=== PATIENT | female | born 1980 | race American Indian/Alaskan Native ===

== ENCOUNTER 2017-02-21 07:31 | Outpatient (CLI) | payer MEDICAID ==
--- NOTE | 2017-02-21 14:23 | Fluoroscopy Report ---
Hysterosalpingogram. History: Infertility workup in a patient who has had previous right ectopic . Procedure and findings: After prepping the external cervical os with sterile solution, a small caliber catheter was introduced into the cervical os and advanced into the endometrial cavity. Injection of Omnipaque 300 was performed under fluoroscopic observation. There is a prominent persistent filling defect in the left lateral aspect of the endometrial cavity probably representing a submucosal fibroid. There is moderate hydrosalpinx of the left proximal fallopian tube. There is patency on the left with reflux into the peritoneal cavity. There is occlusion of the proximal right fallopian tube with no reflux on the right side. Impression: 1. Moderate left hydrosalpinx with patency. 2. Occlusion of the right proximal fallopian tube. 3. Probable submucosal fibroid.
== END 2017-02-21 07:32 | disposition home or self-care (01) ==
LOC: FLUORO 07:31
PROVIDERS: ATTEND Obstetrics & Gynecology
DX: N70.11 Chronic salpingitis (principal); N97.1 Female infertility of tubal origin
CPT/HCPCS: 58340; 74740; Q9967

== ENCOUNTER 2017-07-16 10:44 | Emergency (ER) | payer MEDICAID ==
--- NOTE | 2017-07-16 12:18 | Emergency Department Report ---
Chief Complaint: Abdominal Pain Stated Complaint: LEFT SIDE ABDOMINAL PAIN Time Seen by Provider: 07/16/17 12:13 - HPI History of Present Illness: Patient here reports that she is having left-sided abdominal pain to her pelvic area. She said that she is but she thinks she lost the baby. She says she was seen at [facility] yesterday. They did ultrasound and a CT scan of her abdomen and they saw something in her left tube and they weren't sure what it was. She says she is still having pain at 910 and crampy with dizziness. She says she is having some vaginal bleeding and spotting and this has been going on for 4 weeks now. Patient states she had a normal ultrasound at left sacral PIPE FITTER SUPERVISOR at 8 weeks . She denies any nausea or vomiting. Denies any urinary burning frequency or urgency. She says she has a history of ectopic and they told her that they could not rule out an ectopic at [facility] yesterday so she is concerned and they referred her back to her [facility]IPE [facility] which is [facility] to follow up today. She says she called [facility] and a cement rubber publications manager told her to come to this hospital emergency room for evaluation. Denies any fever or chills. Patient had full lab work, ultrasound and CT scan done. HCG at [facility] 23.8. See record attached to paperwork. - ROS Review of Systems: All systems are negative unless stated in HPI above - Exam Vital Signs: Vital Signs 07/16/17 11:42 Temperature 98.5 F Pulse Rate 60 Respiratory 18 Rate Blood Pressure 108/61 O2 Sat by Pulse 100 Oximetry Physical Exam: Gen.: This is a 36-year-old female well-nourished well-developed in no acute distress. Abdomen: Tender to palpate the left pelvic area. No guarding or rebound tenderness. Normal bowel sounds in all quadrants. MSE screening note: Focused history and physical exam performed. Due to findings the following was ordered: ED Medical Decision Making - Lab Data See complete lab work that was done at [facility] yesterday. - Radiology Data Radiology results: report reviewed interpreted by me: Please refer to ultrasound and CT scan of the abdomen report that was done at [facility] yesterday. - Medical Decision Making MDM: Patient screened by provider in triage area. Appropriate protocol initiated and patient to be seen in main ED by ED Disposition for MSE Condition: Stable Instructions: Abdominal Pain (ED)
[2017-07-16 14:04] LABS: Basophils % (Auto) 0.4 % (0.0-1.8); Eosinophils % (Auto) 1.2 % (0.0-4.3); Hematocrit 39.2 % (30.3-42.9); Hemoglobin 11.7 gm/dl (10.1-14.3); Mean Corpuscular HGB Conc 30 % (30-34); Mean Corpuscular Hemoglobin 27 pg (28-32); Mean Corpuscular Volume 91 fl (79-97); Platelet Count 263 K/mm3 (140-440); Red Blood Count 4.32 M/mm3 (3.65-5.03); Red Cell Distribution Width 15.1 % (13.2-15.2); White Blood Count 7.2 K/mm3 (4.5-11.0)
--- NOTE | 2017-07-17 02:19 | Emergency Department Report ---
<JAROD BAGLEY - Last Filed: 07/17/17 07:37> ED Female HPI - General Chief complaint: Abdominal Pain Stated complaint: LEFT SIDE ABDOMINAL PAIN Time Seen by Provider: 07/16/17 12:13 - Related Data Previous Rx's Medication Instructions Recorded Last Taken Type Acetaminophen [Tylenol Arthritis] 650 mg PO Q6HR PRN #30 tablet.er 07/17/17 Unknown Rx Ondansetron [Zofran Odt] 4 mg PO Q8HR PRN #20 tab.rapdis 07/17/17 Unknown Rx Allergies Allergy/AdvReac Type Severity Reaction Status Date / Time pollen extracts Allergy Swelling Verified 07/16/17 11:42 BUMBLE [place]ES Allergy Swelling Uncoded 02/21/17 07:33 ED Review of Systems ROS: Stated complaint: LEFT SIDE ABDOMINAL PAIN Other details as noted in HPI ED Past Medical Hx - Medications Home Medications: Home Medications Medication Instructions Recorded Confirmed Last Taken Type Acetaminophen [Tylenol Arthritis] 650 mg PO Q6HR PRN #30 tablet.er 07/17/17 Unknown Rx Ondansetron [Zofran Odt] 4 mg PO Q8HR PRN #20 tab.rapdis 07/17/17 Unknown Rx ED Course Vital Signs 07/16/17 07/16/17 07/17/17 11:42 22:02 02:17 Temperature 98.5 F 98.0 F Pulse Rate 60 74 Respiratory 18 16 Rate Blood Pressure 108/61 105/74 Blood Pressure [Left] O2 Sat by Pulse 100 100 100 Oximetry 07/17/17 07/17/17 07/17/17 02:30 02:51 03:56 Temperature Pulse Rate Respiratory 18 Rate Blood Pressure 105/63 105/63 Blood Pressure [Left] O2 Sat by Pulse 99 98 100 Oximetry 07/17/17 07/17/17 07/17/17 04:00 04:16 04:30 Temperature Pulse Rate Respiratory Rate Blood Pressure 97/51 97/51 98/59 Blood Pressure [Left] O2 Sat by Pulse 100 97 99 Oximetry 07/17/17 07/17/17 07/17/17 04:46 05:00 05:16 Temperature Pulse Rate Respiratory Rate Blood Pressure 98/59 105/56 105/56 Blood Pressure [Left] O2 Sat by Pulse 97 98 100 Oximetry 07/17/17 07/17/17 07/17/17 05:30 05:46 06:00 Temperature Pulse Rate Respiratory Rate Blood Pressure 102/52 102/52 105/69 Blood Pressure [Left] O2 Sat by Pulse 100 97 100 Oximetry 07/17/17 07/17/17 07/17/17 06:16 06:30 06:46 Temperature Pulse Rate Respiratory Rate Blood Pressure 105/56 97/59 97/59 Blood Pressure [Left] O2 Sat by Pulse 99 100 98 Oximetry 07/17/17 07/17/17 07/17/17 07:00 07:05 08:26 Temperature 98.5 F 98.3 F Pulse Rate 66 68 Respiratory 20 16 Rate Blood Pressure 105/59 Blood Pressure 105/69 103/60 [Left] O2 Sat by Pulse 99 100 98 Oximetry ED Medical Decision Making - Lab Data Result diagrams: 07/16/17 13:33 - Medical Decision Making blood type B+, rhogam not necessary. Pt will be d/faye with f/u as per Dr Vasquez plan Critical care attestation.: If time is entered above; I have spent that time in minutes in the direct care of this critically ill patient, excluding procedure time. ED Disposition Clinical Impression: Miscarriage Disposition: DC-01 TO HOME OR SELFCARE Condition: Stable Instructions: Threatened Miscarriage (ED) Additional Instructions: Rest and avoid heavy lifting. Avoid strenuous physical activity. Follow-up in 2 days either with this emergency department, or with her private ADMITTING SUPERVISOR doctor for repeat physical exam and blood test/quantitative hCG. Continue the pain medication that was prescribed few at the other hospital, and do not have sex until cleared by a ethnology professor. Return to the ER right away with new pain, worsened pain, migration of pain, bleeding more than 2 pads soaked per hour, lightheadedness, chest pain, shortness of breath, severe pain, intractable nausea or vomiting, inability to tolerate liquid feeds. Prescriptions: Acetaminophen [Tylenol Arthritis] 650 mg PO Q6HR PRN #30 tablet.er PRN Reason: Pain Ondansetron [Zofran Odt] 4 mg PO Q8HR PRN #20 tab.rapdis PRN Reason: Nausea Referrals: PRIMARY CARE, [Primary Care Provider] - 3-5 Days [facility] [Provider Group] - 3-5 Days [facility] [Provider Group] - 3-5 Days [facility] [Provider Group] - 3-5 Days Forms: Work/School Release Form(ED) <MEGAN VASQUEZ - Last Filed: 07/17/17 21:47> ED Female HPI - General Source: patient, RN notes reviewed, old records reviewed Mode of arrival: Ambulatory Limitations: No Limitations - History of Present Illness Initial comments: This is a 36-year-old female who is previously unknown to this provider. Patient reports that she is 4, para 0, and reports that she sees [facility]. Patient has a history of occluded right proximal fallopian tube, and ectopic .. Patient presents to the ER with a complaint of left lower quadrant pain and left upper quadrant pain. Patient reports recently being seen at another hospital, [facility], reports having had a CAT scan and ultrasound. Medical records were obtained, and CT scan reports demonstrated "dilated tubular structure within the left adnexa corresponding to previously seen ultrasound abnormality. This may represent an abnormally dilated fallopian tube , could represent hydrosalpinx, pyosalpinx, free fluid and stranding, nonvisualized ectopic is also a possibility." Patient also had an ultrasound performed, which demonstrated a "indeterminate complex elongated structure within the left adnexa, which appears to be separate from the uterus and left ovary, measuring at least 6.1 x 2.7 cm with internal vascularity. This appears to be separate from the left ovary. Diagnostic considerations included dilated fallopian tube containing complex debris's, pyosalpinx, discrete soft tissue mass, or blood products/hematoma. Patient was seen by consulting ADMITTING SUPERVISOR doctor, Dr. Nasir Reyes who indicated that the patient's findings were not consistent with ectopic , and that the patient should be closely followed up as an outpatient since she' s been having 4 weeks of symptoms. Patient Denies urinary symptoms. Patient further reports that she contacted [facility], and was instructed to come to the ER. Complaint: vaginal bleeding, pelvic pain -: week(s) Location: LLQ Radiation: other (luq) Severity: mild Quality: cramping Consistency: intermittent Improves with: other (rest) Worsens with: movement Are you Now?: Yes Associated Symptoms: vaginal bleeding, abdominal pain, nausea/vomiting. denies : vaginal discharge, fever/chills, headaches, loss of appetite, dysuria, rash, shortness of breath, syncope, weakness - Related Data Sexually active: Yes ED Past Medical Hx - Past Medical History Additional medical history: ectopic - Surgical History Additional Surgical History: ectopic - Social History Smoking Status: Never Smoker Substance Use Type: None ED Physical Exam - General Limitations: No Limitations General appearance: alert, in no apparent distress - Head Head exam: Present: atraumatic, normocephalic - Eye Eye exam: Present: normal appearance, EOMI. Absent: nystagmus - ENT ENT exam: Present: normal exam, normal orophraynx, mucous membranes moist, normal external ear exam - Neck Neck exam: Present: normal inspection, full ROM - Respiratory Respiratory exam: Present: normal lung sounds bilaterally. Absent: respiratory distress - Cardiovascular Cardiovascular Exam: Present: regular rate, normal rhythm, normal heart sounds. Absent: bradycardia, tachycardia, irregular rhythm, systolic murmur, diastolic murmur, rubs, gallop - GI/Abdominal GI/Abdominal exam: Present: soft, normal bowel sounds. Absent: distended, tenderness, guarding, rebound, rigid, pulsatile mass - External exam: Present: other (patient declined a gynecologic examination) - Extremities Exam Extremities exam: Present: normal inspection, full ROM, normal capillary refill. Absent: tenderness, pedal edema, joint swelling, calf tenderness - Back Exam Back exam: Present: normal inspection, full ROM. Absent: tenderness, CVA tenderness (R), paraspinal tenderness, vertebral tenderness - Neurological Exam Neurological exam: Present: alert, oriented X3, CN II-XII intact, normal gait, other (Extraocular movements intact. Tongue midline. No facial droop. Facial sensation intact to light touch in the V1, V2, V3 distribution bilaterally. 5 and 5 strength in 4 extremities.. Sensation is intact to light touch in 4 extremities.). Absent: motor sensory deficit - Psychiatric Psychiatric exam: Present: normal affect, normal mood - Skin Skin exam: Present: warm, dry, intact, normal color. Absent: rash ED Course - Reevaluation(s) Reevaluation #1: 07/17/17 04:39 Differential diagnosis, including but not limited to: Ectopic , ovarian cyst, heterotopic Assessment and plan: 36-year-old female with a complaint of abdominal pain, nausea and vomiting. When I walk into the room the patient is in no distress, eating [employer], not actively vomiting, and in no distress. There is no abdominal tenderness and she refuses/declines a gynecologic examination. She denies irritative urinary symptoms, and reports that urinalysis at the other hospital, [facility], was negative for urinary tract infection. Her CT scan and ultrasound report have been reviewed, hemoglobin and hematocrit today appeared to be within normal limits, Rh is pending, repeat pelvic ultrasound is pending, I will discuss with covering gynecology once her ultrasound has been resulted. Reevaluation #2: 07/17/17 05:54 Case is discussed with nurse practitioner grounds maintenance supervisor, Sayra Lamberto; she informs me that she spoke to the patient yesterday and instructed her to come to the emergency room. She agrees with plan for patient to follow-up in the next 48 hours for repeat quantitative hCG. She indicates patient can follow-up in her office, or the patient can return to the ER. Reevaluation #3: 07/17/17 06:[address] Bagley to follow up on RH status ED Medical Decision Making - Lab Data Result diagrams: 07/16/17 13:33 Vital Signs 07/16/17 07/16/17 07/17/17 11:42 22:02 02:17 Temperature 98.5 F 98.0 F Pulse Rate 60 74 Respiratory 18 16 Rate Blood Pressure 108/61 105/74 O2 Sat by Pulse 100 100 100 Oximetry 07/17/17 07/17/17 07/17/17 02:30 02:51 03:56 Temperature Pulse Rate Respiratory 18 Rate Blood Pressure 105/63 105/63 O2 Sat by Pulse 99 98 100 Oximetry 07/17/17 07/17/17 07/17/17 04:00 04:16 04:30 Temperature Pulse Rate Respiratory Rate Blood Pressure 97/51 97/51 98/59 O2 Sat by Pulse 100 97 99 Oximetry 07/17/17 07/17/17 07/17/17 04:46 05:00 05:16 Temperature Pulse Rate Respiratory Rate Blood Pressure 98/59 105/56 105/56 O2 Sat by Pulse 97 98 100 Oximetry 07/17/17 05:30 Temperature Pulse Rate Respiratory Rate Blood Pressure 102/52 O2 Sat by Pulse 100 Oximetry Lab Results 07/16/17 07/16/17 Range/Units 13:33 13:33 WBC 7.2 (4.5-11.0) K/mm3 RBC 4.32 (3.65-5.03) M/mm3 Hgb 11.7 (10.1-14.3) gm/dl Hct 39.2 (30.3-42.9) % MCV 91 (79-97) fl MCH 27 L (28-32) pg MCHC 30 (30-34) % RDW 15.1 (13.2-15.2) % Plt Count 263 (140-440) K/mm3 Lymph % (Auto) 26.0 (13.4-35.0) % Stephens % (Auto) 5.7 (0.0-7.3) % Eos % (Auto) 1.2 (0.0-4.3) % Baso % (Auto) 0.4 (0.0-1.8) % Lymph # 1.9 (1.2-5.4) K/mm3 Stephens # 0.4 (0.0-0.8) K/mm3 Eos # 0.1 (0.0-0.4) K/mm3 Baso # 0.0 (0.0-0.1) K/mm3 Seg Neutrophils % 66.7 (40.0-70.0) % Seg Neutrophils # 4.8 (1.8-7.7) K/mm3 HCG, Quant 23.93 H (0-4) mIU/mL - Radiology Data Radiology results: report reviewed, image reviewed Referring Physician: MEGAN VASQUEZ Patient Name: KAPIL MEADOWS Date of : 1980 Sex: Female Report Date: 2017-07-17 Report Status: Finalized Findings [address] [address] Ultrasound Report Signed Patient: KAPIL MEADOWS MR#: [id number] : 1980 Acct:[id number] Age/Sex: 36 / F ADM Date: 07/16/17 Loc: ED Attending Dr: Ordering Physician: MEGAN VASQUEZ MD Date of Service: 07/17/17 Procedure(s): US OB transvaginal Accession Number(s): [id number] cc: MEGAN VASQUEZ MD FINAL REPORT PROCEDURE: US OB TRANSVAGINAL TECHNIQUE: Real-time transvaginal sonography of the uterus, placenta, amniotic fluid, adnexa, and fetus was performed with image documentation. Measurements were obtained to determine age/size. M-mode Doppler was used to document heartbeat. CPT 29787 HISTORY: vag bleed COMPARISON: No prior studies are available for comparison. FINDINGS: No intrauterine is identified. There is a posterior intramural fibroid measuring 2.5 centimeters. The uterus measures 7.5 x 4.1 x 5.4 centimeters. The endometrium measures 5 millimeters in thickness. There is no endometrial fluid. The right ovary measures 2.7 x 2.2 x 2.5 centimeters. Left ovary measures 6.1 x 2.6 x 2.7 centimeters. There is a 4.9 centimeter complex cyst which could be hemorrhagic. There is no specific evidence of ectopic but correlation with beta HCG levels may be helpful. There is normal appearing blood flow without evidence of torsion. There is moderate free pelvic fluid. IMPRESSION: No intrauterine is seen. There is a probable hemorrhagic cyst in the right ovary measuring 4.9 centimeters. There is moderate free pelvic fluid. Followup is recommended. Transcribed By: CO Dictated By: CHECO HALE MD Electronically Authenticated By: CHECO AHLE MD Signed Date/Time: 07/17/1751 DD/ TD/TT: 07/17/1751 ED Disposition Is pt being admited?: No Does the pt Need Aspirin: No
--- NOTE | 2017-07-17 04:55 | Ultrasound Report ---
FINAL REPORT PROCEDURE: US OB TRANSVAGINAL TECHNIQUE: Real-time transvaginal sonography of the uterus, placenta, amniotic fluid, adnexa, and fetus was performed with image documentation. Measurements were obtained to determine age/size. M-mode Doppler was used to document heartbeat. CPT 14413 HISTORY: vag bleed COMPARISON: No prior studies are available for comparison. FINDINGS: No intrauterine is identified. There is a posterior intramural fibroid measuring 2.5 centimeters. The uterus measures 7.5 x 4.1 x 5.4 centimeters. The endometrium measures 5 millimeters in thickness. There is no endometrial fluid. The right ovary measures 2.7 x 2.2 x 2.5 centimeters. Left ovary measures 6.1 x 2.6 x 2.7 centimeters. There is a 4.9 centimeter complex cyst which could be hemorrhagic. There is no specific evidence of ectopic but correlation with beta HCG levels may be helpful. There is normal appearing blood flow without evidence of torsion. There is moderate free pelvic fluid. IMPRESSION: No intrauterine is seen. There is a probable hemorrhagic cyst in the right ovary measuring 4.9 centimeters. There is moderate free pelvic fluid. Followup is recommended.
--- NOTE | 2017-07-17 07:21 | Ultrasound Report ---
FINAL REPORT PROCEDURE: US OB TRANSABDOMINAL TECHNIQUE: Real-time transabdominal sonography of the uterus, placenta, amniotic fluid, adnexa, and fetus was performed with image documentation. Measurements were obtained to determine age/size. M-mode Doppler was used to document heartbeat. HISTORY: vag bleed COMPARISON: No prior studies are available for comparison. FINDINGS: No intrauterine is identified. There is a posterior intramural fibroid measuring 2.5 centimeters. The uterus measures 7.5 x 4.1 x 5.4 centimeters. The endometrium measures 5 millimeters in thickness. There is no endometrial fluid. The right ovary measures 2.7 x 2.2 x 2.5 centimeters. Left ovary measures 6.1 x 2.6 x 2.7 centimeters. There is a 4.9 centimeter complex cyst which could be hemorrhagic. There is no specific evidence of ectopic but correlation with beta HCG levels may be helpful. There is normal appearing blood flow without evidence of torsion. There is moderate free pelvic fluid. IMPRESSION: No intrauterine is seen. There is a probable hemorrhagic cyst in the right ovary measuring 4.9 centimeters. There is moderate free pelvic fluid. Followup is recommended.
[2017-07-17 08:27] VITALS: BP 103/60
== END 2017-07-17 08:26 | disposition home or self-care (01) ==
LOC: ED 10:44
DX: O03.9 Complete or unspecified spontaneous abortion without complication (principal); N83.291 Other ovarian cyst, right side; Z91.048 Other nonmedicinal substance allergy status; Z88.8 Allergy status to other drugs, medicaments and biological substances
CPT/HCPCS: 36415; 76801; 76817; 84702; 85025; 86850; 86900; 86901